=== PATIENT | male | born 1950 | race Caucasian/White ===

== ENCOUNTER 2024-10-13 11:24 | Inpatient (IN) | payer MEDICARE, OTHER ==
[~2024-10-13] VITALS: Ht 170.2 cm; Wt 81.2 kg
[2024-10-13 12:13] LABS: BASOPHILS % (AUTO) 0.4 % (0.0-2.0); EOSINOPHILS % (AUTO) 0.2 % (0.0-6.0); HEMATOCRIT 33 % (39-51); HEMOGLOBIN 10.6 g/dL (13.5-17.5); LYMPHOCYTES # (AUTO) 0.7 K/uL (0.8-4.8); LYMPHOCYTES % (AUTO) 7.4 % (20.0-44.0); MEAN CORPUSCULAR HEMOGLOBIN 28 PG (26.0-33.0); MEAN CORPUSCULAR HGB CONC 32 g/dl (31.0-36.0); MEAN CORPUSCULAR VOLUME 88 fL (80-96); MONOCYTES # (AUTO) 1.7 K/uL (0.1-1.30); MONOCYTES % (AUTO) 19.1 % (2.0-12.0); NEUTROPHILS # (AUTO) 6.5 K/uL (1.8-8.9); NEUTROPHILS % (AUTO) 72.9 % (43.0-81.0); PLATELET COUNT (AUTO) 228 K/uL (150-450); RED BLOOD CELL COUNT(AUTO) 3.75 MIL/uL (4.5-6.0); RED CELL DISTRIBUTION WIDTH 17.5 % (11.5-15.0); WHITE BLOOD COUNT (AUTO) 8.9 K/uL (4.3-11.0)
[2024-10-13] MEDS ORDERED: INSU3INS10 SQ (12:22)
[2024-10-13] MEDS ORDERED: NIFE-35 PO (12:22)
[2024-10-13] MEDS ORDERED: LOSA50TA39 PO (12:22)
[2024-10-13 12:27] LABS: MAGNESIUM 2.2 mg/dL (1.8-2.4)
[2024-10-13 12:37] LABS: ALANINE AMINOTRANSFERASE 12 U/L (12-78); ALKALINE PHOSPHATASE 369 U/L (46-116); ASPARTATE AMINOTRANSFERASE 15 U/L (15-37); BILIRUBIN,DIRECT 0.2 mg/dL (0.0-0.2); BILIRUBIN,TOTAL 0.7 mg/dL (0.2-1.0); CALCIUM, SERUM 7.9 mg/dL (8.5-10.1); CARBON DIOXIDE 23 mmol/L (21-32); CHLORIDE 98 mmol/L (98-107); GLUCOSE 131 mg/dL (74-106); SODIUM SERUM 135 mmol/L (136-145); TOTAL PROTEIN, SERUM 7.6 g/dL (6.4-8.2)
[2024-10-13 12:38] LABS: THYROID STIMULATING HORMONE 0.89 uIU/mL (0.358-3.74)
[2024-10-13 12:39] LABS: POTASSIUM 6.5 mmol/L (3.5-5.1); UREA NITROGEN, BLOOD 82 mg/dL (7-18)
[2024-10-13 12:40] LABS: CREATININE 10.1 mg/dL (0.6-1.3)
[2024-10-13] MEDS ORDERED: DEXTROSE 50%-WATER 50 ML DISP.SYRIN ONE (12:55)
[2024-10-13] MEDS ORDERED: SODIUM BICARBONATE SYR 50 MEQ/50 ML DISP.SYRIN ONE (12:55)
[2024-10-13] MEDS ORDERED: CALCIUM CHLORIDE 1,000 MG/10 ML DISP.SYRIN ONE (12:55)
[2024-10-13] MEDS ORDERED: INSULIN REGULAR, HUMAN 100 UNIT/ML 10 ML VIAL ONE (12:56)
[2024-10-13] MEDS: CALCIUM CHLORIDE 1,000 MG/10 ML DISP.SYRIN IV ONE (13:00)
[2024-10-13] MEDS: SODIUM BICARBONATE SYR 50 MEQ/50 ML DISP.SYRIN IV ONE (13:01)
[2024-10-13] MEDS: INSULIN REGULAR, HUMAN 100 UNIT/ML 10 ML VIAL IV ONE (13:05)
[2024-10-13] MEDS: DEXTROSE 50%-WATER 50 ML DISP.SYRIN IV ONE (13:05)
[2024-10-13 13:12] LABS: NT-PRO BNP 64224 pg/mL (0-125)
[2024-10-13 13:23] LABS: EOSINOPHILS % (MANUAL) 1 % (0-4); LYMPHOCYTES % (MANUAL) 11 % (16-48); MONOCYTES % (MANUAL) 16 % (0-11.0); NEUTROPHILS % (MANUAL) 72 (42-76); PLATELET ESTIMATE ADEQUATE
[2024-10-13 13:24] LABS: ANISOCYTOSIS 1+
[2024-10-13] MEDS ORDERED: ERGO500093 PO (13:50)
[2024-10-13] MEDS ORDERED: FERR325T28 PO (13:50)
[2024-10-13] MEDS ORDERED: FOLI0.4T6 PO (13:50)
[2024-10-13] MEDS ORDERED: AMOX1TAB15 PO (13:50)
[2024-10-13] MEDS ORDERED: LINA5TAB PO (13:50)
[2024-10-13] MEDS ORDERED: HYDR-4209 PO (13:50)
[2024-10-13] MEDS ORDERED: SEVE800T8 PO (13:50)
[2024-10-13] MEDS ORDERED: METF-440 PO (13:50)
[2024-10-13] MEDS ORDERED: TAMS-12 PO (13:50)
[2024-10-13] MEDS ORDERED: Z GUARD REMEDY 4 OZ OINT TP PRN (15:00)
[2024-10-13] MEDS ORDERED: ACETAMINOPHEN 325 MG TABLET PO PRN (15:00)
[2024-10-13] MEDS ORDERED: MAGNESIUM HYDROXIDE 30 ML UDC PO PRN (15:00)
[2024-10-13] MEDS ORDERED: MAG HYDROX/AL HYDROX/SIMETH 30 ML UDC PO PRN (15:00)
[2024-10-13] MEDS ORDERED: ZOLPIDEM TARTRATE 5 MG TABLET PO PRN (15:00)
[2024-10-13 16:00] VITALS: BP 160/62; TEMP 97.9; O2SAT 96
[2024-10-13 18:36] LABS: CARBON DIOXIDE 27 mmol/L (21-32); CHLORIDE 99 mmol/L (98-107); CREATININE 6.5 mg/dL (0.6-1.3); GLUCOSE 231 mg/dL (74-106); POTASSIUM 4.9 mmol/L (3.5-5.1); SODIUM SERUM 137 mmol/L (136-145); UREA NITROGEN, BLOOD 52 mg/dL (7-18)
[2024-10-13 20:00] VITALS: BP 173/74; TEMP 98.4; O2SAT 96
[2024-10-13] MEDS ORDERED: ERGOCALCIFEROL (VITAMIN D 2) 50,000 UNIT CAPSULE PO SCH (21:30)
[2024-10-13] MEDS: CLONIDINE HCL 0.1 MG TABLET PO PRN (22:48)
[2024-10-13] MEDS: TAMSULOSIN 0.4 MG CAP.SR.24H PO SCH (22:48)
[2024-10-13] MEDS: HYDROCODONE/APAP 5/325MG TABLET PO PRN (23:53)
[2024-10-14] VITALS: BP 173/69; TEMP 97.9; O2SAT 97
[2024-10-14 04:00] VITALS: BP 147/65; TEMP 97.7; O2SAT 97
[2024-10-14 07:08] LABS: BASOPHILS % (AUTO) 0.3 % (0.0-2.0); EOSINOPHILS # (AUTO) 0.1 K/uL (0.0-0.7); EOSINOPHILS % (AUTO) 0.9 % (0.0-6.0); HEMATOCRIT 32 % (39-51); HEMOGLOBIN 10.2 g/dL (13.5-17.5); LYMPHOCYTES # (AUTO) 0.6 K/uL (0.8-4.8); LYMPHOCYTES % (AUTO) 9.7 % (20.0-44.0); MEAN CORPUSCULAR HEMOGLOBIN 28 PG (26.0-33.0); MEAN CORPUSCULAR HGB CONC 32 g/dl (31.0-36.0); MEAN CORPUSCULAR VOLUME 86 fL (80-96); MONOCYTES # (AUTO) 1.5 K/uL (0.1-1.30); MONOCYTES % (AUTO) 22.9 % (2.0-12.0); NEUTROPHILS # (AUTO) 4.4 K/uL (1.8-8.9); NEUTROPHILS % (AUTO) 66.2 % (43.0-81.0); PLATELET COUNT (AUTO) 208 K/uL (150-450); RED BLOOD CELL COUNT(AUTO) 3.69 MIL/uL (4.5-6.0); RED CELL DISTRIBUTION WIDTH 17.3 % (11.5-15.0); WHITE BLOOD COUNT (AUTO) 6.6 K/uL (4.3-11.0)
[2024-10-14 07:22] LABS: CALCIUM, SERUM 8.1 mg/dL (8.5-10.1); CARBON DIOXIDE 26 mmol/L (21-32); CHLORIDE 98 mmol/L (98-107); CREATININE 7.4 mg/dL (0.6-1.3); GLUCOSE 174 mg/dL (74-106); MAGNESIUM 2.1 mg/dL (1.8-2.4); PHOSPHORUS 6.1 mg/dL (2.5-4.9); POTASSIUM 4.9 mmol/L (3.5-5.1); SODIUM SERUM 137 mmol/L (136-145); UREA NITROGEN, BLOOD 51 mg/dL (7-18)
[2024-10-14 07:42] LABS: BAND % (MANUAL) 2 % (0.0-5.0); NEUTROPHILS % (MANUAL) 70 (42-76)
[2024-10-14 07:43] LABS: ANISOCYTOSIS 1+; BASOPHILS % (MANUAL) 0 % (0.0-2.0); EOSINOPHILS % (MANUAL) 0 % (0-4); LYMPHOCYTES % (MANUAL) 11 % (16-48); MONOCYTES % (MANUAL) 17 % (0-11.0); PLATELET ESTIMATE ADEQUATE
[2024-10-14 08:00] VITALS: BP 153/74; TEMP 97.9; O2SAT 97
[2024-10-14] MEDS ORDERED: LIRAGLUTIDE SQ SCH (09:00)
[2024-10-14] MEDS ORDERED: [UNRECOGNIZED DRUG - OTHER] SQ SCH (09:00)
[2024-10-14] MEDS ORDERED: METFORMIN 500 MG TABLET PO SCH (09:00)
[2024-10-14] MEDS ORDERED: INSULIN DEGLUDEC SQ SCH (09:00)
[2024-10-14] MEDS ORDERED: FERROUS SULFATE (325 MG) 325 MG/TAB TABLET PO SCH (09:00)
[2024-10-14] MEDS: hydrALAZINE HCL 50 MG TABLET PO SCH (09:05)
[2024-10-14] MEDS: NIFEdipine XL (30MG) 30 MG TAB PO SCH (09:05)
[2024-10-14] MEDS: FOLIC ACID 1 MG TABLET PO SCH (09:05)
[2024-10-14] MEDS: SEVELAMER CARBONATE 800 MG TABLET PO SCH (09:05)
[2024-10-14] MEDS: LINAGLIPTIN 5 MG TABLET PO SCH (09:06)
[2024-10-14] MEDS: ONDANSETRON HCL/PF 4 MG/2 ML VIAL IVP PRN (09:06)
[2024-10-14] MEDS: LOSARTAN POTASSIUM 50 MG TABLET PO SCH (09:06)
[2024-10-14] MEDS ORDERED: ERGOCALCIFEROL (VITAMIN D 2) 50,000 UNIT CAPSULE PO SCH (10:00)
[2024-10-14 10:30] LABS: THYROID STIMULATING HORMONE 0.98 uIU/mL (0.358-3.74)
[2024-10-14 12:00] VITALS: BP 135/63; TEMP 98.4; O2SAT 96
[2024-10-14] MEDS ORDERED: PROCHLORPERAZINE EDISYLATE 10 MG/2 ML VIAL IVP PRN (13:30)
[2024-10-14 16:00] VITALS: BP 137/72; TEMP 97.3; O2SAT 99
[2024-10-14 20:00] VITALS: BP 122/62; TEMP 98.1; O2SAT 95
[2024-10-15] VITALS (7 sets, daily range): BP systolic 122–146; BP diastolic 58–67; TEMP 97.7–98.8; O2SAT 88–97
[2024-10-15] MEDS ORDERED: DEXTROSE 50%-WATER 50 ML DISP.SYRIN IV PRN ×2 (08:30→11:30)
[2024-10-15] MEDS ORDERED: INSULIN REGULAR, HUMAN 100 UNIT/ML 3 ML VIAL SQ PRN (08:30)
[2024-10-15] MEDS: ERGOCALCIFEROL (VITAMIN D 2) 50,000 UNIT CAPSULE PO SCH (09:01)
[2024-10-15] MEDS: BLOOD SUGAR DIAGNOSTIC 1 EACH STRIP IN SCH ×2 (09:16→11:57)
[2024-10-15] MEDS: INSULIN REGULAR, HUMAN 100 UNIT/ML 3 ML VIAL SQ PRN (11:58)
[2024-10-15] MEDS ORDERED: BLOOD SUGAR DIAGNOSTIC 1 EACH STRIP IN SCH (12:00)
[2024-10-15 12:53] LABS: THYROID STIMULATING HORMONE 0.64 uIU/mL (0.358-3.74)
[2024-10-16] VITALS: BP 139/63; TEMP 98.9; O2SAT 95
[2024-10-16 04:00] VITALS: BP 135/66; TEMP 98.2; O2SAT 95
[2024-10-16 06:11] LABS: HEPATITIS B SURFACE AB Non Reactive (.)
[2024-10-16 08:00] VITALS: BP 134/65; TEMP 98.4; O2SAT 94
[2024-10-16] MEDS ORDERED: HYDR-4077 PO (10:57)
[2024-10-16 11:39] LABS: CALCIUM, SERUM 7.9 mg/dL (8.5-10.1); CARBON DIOXIDE 25 mmol/L (21-32); CHLORIDE 96 mmol/L (98-107); GLUCOSE 234 mg/dL (74-106); POTASSIUM 5.5 mmol/L (3.5-5.1); SODIUM SERUM 133 mmol/L (136-145); UREA NITROGEN, BLOOD 57 mg/dL (7-18)
[2024-10-16 11:42] LABS: CREATININE 7.7 mg/dL (0.6-1.3)
[2024-10-16 12:58] VITALS: BP 141/65; TEMP 98.2; O2SAT 94
[2024-10-17 01:07] LABS: FOLIC ACID 6.4 ng/mL (>3.0)
== END 2024-10-16 13:49 | disposition home or self-care (01) | DRG 640 ==
LOC: ER 11:50 → MEDSG1 13:53 → TELE1 15:44 → MEDSG1 10-16 10:14
PROVIDERS: ADMIT Internal Medicine; ATTEND Nurse Practitioner Acute Care
PROC: 5A1D70Z Performance of Urinary Filtration, Intermittent, Less than 6 Hours Per Day (ICD-10-PCS; principal; 2024-10-13)
DX: E87.5 Hyperkalemia (principal); G93.41 Metabolic encephalopathy; I21.A1 Myocardial infarction type 2; N18.6 End stage renal disease; I12.0 Hypertensive chronic kidney disease with stage 5 chronic kidney disease or end stage renal disease; E11.22 Type 2 diabetes mellitus with diabetic chronic kidney disease; E87.1 Hypo-osmolality and hyponatremia; Z99.2 Dependence on renal dialysis; Z79.84 Long term (current) use of oral hypoglycemic drugs; N40.0 Benign prostatic hyperplasia without lower urinary tract symptoms; Z79.4 Long term (current) use of insulin; D63.8 Anemia in other chronic diseases classified elsewhere; I44.0 Atrioventricular block, first degree; M89.8X9 Other specified disorders of bone, unspecified site; M54.16 Radiculopathy, lumbar region; Z87.01 Personal history of pneumonia (recurrent); Z91.81 History of falling
CPT/HCPCS: 36415; 70450-TC; 71045-TC; 80048-TC; 80061-TC; 80076-TC; 82607-TC; 82728-TC; 82962-TC; 83540-TC; 83735-TC; 83880; 83921; 84100-TC; 84425; 84439-TC; 84443-TC; 84484-TC; 85025-TC; 86706; 87340; 90935-TC; 93307-TC; 94760-TC; 94799-TC; 97110-TC; 97530-TC; G0378; J0780; J1815; J2405; J3490; J7030

== ENCOUNTER 2024-11-29 12:23 | Emergency (ER) | payer MEDICARE, OTHER ==
[~2024-11-29] VITALS: Ht 167.6 cm; Wt 85.3 kg
[~2024-11-29 12:23] MED LIST: ERGO500093 PO; FERR325T28 PO; FOLI0.4T6 PO; HYDR-4077 PO; HYDR-4209 PO; INSU3INS10 SQ; LINA5TAB PO; LOSA50TA39 PO; METF-440 PO; NIFE-35 PO; SEVE800T8 PO; TAMS-12 PO
[2024-11-29 13:34] LABS: BASOPHILS % (AUTO) 0.2 % (0.0-2.0); EOSINOPHILS # (AUTO) 0.1 K/uL (0.0-0.7); EOSINOPHILS % (AUTO) 0.7 % (0.0-6.0); HEMATOCRIT 34 % (39-51); HEMOGLOBIN 10.6 g/dL (13.5-17.5); LYMPHOCYTES # (AUTO) 0.7 K/uL (0.8-4.8); LYMPHOCYTES % (AUTO) 6.1 % (20.0-44.0); MEAN CORPUSCULAR HEMOGLOBIN 28 PG (26.0-33.0); MEAN CORPUSCULAR HGB CONC 32 g/dl (31.0-36.0); MEAN CORPUSCULAR VOLUME 90 fL (80-96); MONOCYTES % (AUTO) 9.3 % (2.0-12.0); NEUTROPHILS # (AUTO) 9.2 K/uL (1.8-8.9); NEUTROPHILS % (AUTO) 83.7 % (43.0-81.0); PLATELET COUNT (AUTO) 209 K/uL (150-450); RED BLOOD CELL COUNT(AUTO) 3.74 MIL/uL (4.5-6.0)
[2024-11-29 13:42] LABS: INR 1.18 (0.91-1.10); PARTIAL THROMBOPLASTIN TIME 30.5 SEC (24.3-34.3); PROTHROMBIN TIME 12.4 SECS (9.2-11.1)
[2024-11-29 13:49] LABS: ALANINE AMINOTRANSFERASE 16 U/L (12-78); ALBUMIN 3.6 g/dL (3.4-5.0); ALKALINE PHOSPHATASE 517 U/L (46-116); ASPARTATE AMINOTRANSFERASE 38 U/L (15-37); BILIRUBIN,DIRECT 0.3 mg/dL (0.0-0.2); CARBON DIOXIDE 22 mmol/L (21-32); CHLORIDE 91 mmol/L (98-107); GLUCOSE 341 mg/dL (74-106); NT-PRO BNP > 25000 pg/mL (0-125); SODIUM SERUM 132 mmol/L (136-145); TOTAL PROTEIN, SERUM 7.7 g/dL (6.4-8.2)
[2024-11-29 14:21] LABS: UREA NITROGEN, BLOOD 112 mg/dL (7-18)
[2024-11-29 14:22] LABS: CREATININE 9.8 mg/dL (0.6-1.3)
[2024-11-29 14:29] VITALS: BP 148/76; TEMP 98.3; O2SAT 98
== END 2024-11-29 14:30 | disposition home or self-care (01) ==
LOC: ER 12:29
DX: I12.0 Hypertensive chronic kidney disease with stage 5 chronic kidney disease or end stage renal disease (principal); E11.22 Type 2 diabetes mellitus with diabetic chronic kidney disease; N18.6 End stage renal disease; I49.3 Ventricular premature depolarization; Z79.4 Long term (current) use of insulin; Z79.84 Long term (current) use of oral hypoglycemic drugs; Z79.85 Long-term (current) use of injectable non-insulin antidiabetic drugs; Z79.899 Other long term (current) drug therapy; Z99.2 Dependence on renal dialysis
CPT/HCPCS: 36415; 71045-TC; 80048-TC; 80076-TC; 83880; 85025-TC; 85730-TC